=== PATIENT | male | born 1995 | race Two or more races ===

== ENCOUNTER 2023-04-17 19:12 | Emergency (ER) | payer OTHER ==
[~2023-04-17] VITALS: Ht 188 cm; Wt 139.3 kg
== END 2023-04-17 23:55 | disposition home or self-care (01) ==
LOC: ER 19:12
DX: S00.93XA Contusion of unspecified part of head, initial encounter (principal); W19.XXXA Unspecified fall, initial encounter; Y93.9 Activity, unspecified; Y92.89 Other specified places as the place of occurrence of the external cause; Y99.9 Unspecified external cause status